=== PATIENT | female | born 1985 | race Caucasian/White ===

== ENCOUNTER 2021-06-07 21:00 | Emergency (ER) | payer OTHER, SELFPAY ==
[2021-06-07 21:48] VITALS: BP 121/90; PULSE 65; RESP 18; TEMP 36.9; O2SAT 99; BMI 18.5
--- NOTE | 2021-06-07 23:44 | PC.NURSE ---
Provider going to see patient for evaluation but patient was not in the [facility]. Prior to provider going to see patient, she inquired that she needed a medication for pain. Patient was not yet evaluated by the provider so there was no order for pain medication. MD attempting to determine if patient had eloped.
== END 2021-06-08 00:02 | disposition left against medical advice (07) ==
PROVIDERS: Emergency Provider Student in an Organized Health Care Education/Training Program
DX: R21 Rash and other nonspecific skin eruption (principal); R60.0 Localized edema
CPT/HCPCS: 99283